=== PATIENT | male | born 1995 | race Caucasian/White ===

== ENCOUNTER 2016-12-18 18:41 | Emergency (ER) | payer OTHER ==
[2016-12-18] MEDS ORDERED: HYDROcodone/APAP 5-325MG 1 EACH TAB PO STA (19:15)
--- NOTE | 2016-12-18 19:26 | ED ---
General Adult HPI - General Chief complaint: Eye Problems Stated complaint: Eye Injury Source: patient, RN notes reviewed Mode of arrival: wheelchair Limitations: no limitations - History of Present Illness Initial comments: Chief complaint and history of present illness a 20-year-old male who was out shooting skin. One of his friends had ischemic in the skeet throwing device and accidentally threw it in his direction hitting him in the right eye. He has bruising on the bridge of the nose across the upper and lower eyelid. He complains of decreased vision. - Related Data Home Medications Medication Instructions Recorded Confirmed Ibuprofen [Motrin] 600 mg PO Q8H PRN 12/18/16 12/18/16 Allergies Allergy/AdvReac Type Severity Reaction Status Date / Time No Known Allergies Allergy Verified 12/18/16 19:30 Review of Systems ROS Statement: Those systems with pertinent positive or pertinent negative responses have been documented in the HPI. Review of systems headache on the right side. Decreased vision. He is able to count fingers at 5 feet in the dark but blurred. Extraocular movements are normal. Pain to the bones around the right eye. Nose no loss of consciousness. No other complaints. All systems are reviewed. Past medical problems asthma. Surgeries none. Family history cancers of unknown type. Patient denies ALLERGIES. Patient does smoke strongly encouraged to stop rarely drinks alcohol. Last tetanus shot was 6 months ago. ROS Other: All systems not noted in ROS Statement are negative. Past Medical History Past Medical History: No Reported History History of Any Multi-Drug Resistant Organisms: None Reported Past Surgical History: No Surgical Hx Reported Past Psychological History: No Psychological Hx Reported Smoking Status: Current some day smoker Past Alcohol Use History: Occasional Past Drug Use History: Marijuana General Exam - General Exam Comments Initial Comments: General: The patient is awake and alert, planes of blurred vision and pain to his right eye. Vital signs show temperature 97.5 pulse 67 respiratory rate 20 pulse ox 99 % room air blood pressure 133/72 Eye: Right eye has bruising and abrasions on the upper or lower lids and bridge of nose. The patient has a faint hyphema. The pupil is dilated and does not respond to light. Extraocular movements are normal. Does not complain of diplopia during eye testing. Ears, nose, mouth and throat: There are moist mucous membranes and no oral lesions. Patient has no other complaints the chest abdomen or neurological problems. Limitations: no limitations Course Vital Signs 12/18/16 18:43 Temperature 97.5 F L Pulse Rate 67 Respiratory 20 Rate Blood Pressure 133/72 O2 Sat by Pulse 99 Oximetry Medical Decision Making - Medical Decision Making Patient reports at this time that his vision is clearing. Able to count fingers in the dark at approximately [address] of the orbits is reported to be negative by the radiologist as final impression is no acute fracture evident. No radiopaque foreign body is seen. As read by Dr. Julien I discussed the case with on-call electronic assembler Dr. Griggs. He recommends the eye shield which has already been placed. Pred forte one drop 4 times a day in affect and I as well as atropine 1% one drop in the affected eye twice a day. And follow up in office in approximately 13 hours. Patient was also advised to sleep with some upright. No sneezing, minimal head movement, no trauma. Disposition Clinical Impression: Hyphema of right eye Disposition: HOME SELF-CARE Condition: Serious Instructions: Hyphema (ED) Additional Instructions: Wear protective eye guard all a time. Remove it only to put in atropine one drop twice a day and Pred forte drops 4 times a day. Follow-up Dr. Griggs in the morning at either his [place] or [place] office. Referrals: None,Stated [Primary Care Provider] - 1-2 days Severo Griggs MD [STAFF PHYSICIAN] - 1-2 days Time of Disposition: 20:10
--- NOTE | 2016-12-18 19:38 | CT ---
EXAMINATION TYPE: CT orbits wo con DATE OF EXAM: 12/18/2016 7:26 PM COMPARISON: NONE HISTORY: FB to right eye. Trauma to right eye, hyphema and pain CT DLP: 474.4 mGycm Automated exposure control for dose reduction was used. FINDINGS: Ostiomeatal units are patent. Orbits are intact, no evident fracture. Mild inflammatory change presen t in the ethmoid air cells. Lindsay bullosa are present bilaterally. Soft tissue swelling is noted. No foreign body is evident. IMPRESSION: NO ACUTE FRACTURE EVIDENT. NO RADIOPAQUE FOREIGN BODY IS SEEN.
[2016-12-18] MEDS ORDERED: prednisoLONE ACETATE 1% OPHTH DROPS 1 ML BTL RIGHT EYE SCH (20:30)
[2016-12-18 20:42] VITALS: BP 114/56; PULSE 51; RESP 16; TEMP 99.8
[2016-12-18] MEDS ORDERED: ATROPINE OPHTH SOLN 1% 5ML BTL RIGHT EYE SCH (21:00)
== END 2016-12-18 20:43 | disposition home or self-care (01) ==
LOC: EC 18:41
DX: S05.11XA Contusion of eyeball and orbital tissues, right eye, initial encounter (principal); F17.200 Nicotine dependence, unspecified, uncomplicated; W20.8XXA Other cause of strike by thrown, projected or falling object, initial encounter; Y93.89 Activity, other specified
CPT/HCPCS: 70480; 99283

== ENCOUNTER 2017-02-12 14:48 | Emergency (ER) | payer OTHER ==
[2017-02-12 15:10] VITALS: BP 114/56; PULSE 74; RESP 20; TEMP 97.5
[2017-02-12] MEDS ORDERED: HYDROcodone/APAP 5-325MG 1 EACH TAB PO STA (15:59)
--- NOTE | 2017-02-12 16:32 | ED ---
Lower Extremity Injury HPI - General Chief Complaint: Extremity Injury, Lower Stated Complaint: L ankle injury Time Seen by Provider: 02/12/17 15:55 Source: family, RN notes reviewed Mode of arrival: ambulatory Limitations: physical limitation - History of Present Illness Initial Comments: 21-year-old male presented to the ER sustaining an injury to his left ankle. He states that he [place] [employer] on [place] jumping on a trampoline when his foot rolled causing instant pain. He stated that it did swell instantly and he is unable to bear weight on the left ankle. He states that he has tried to take Tylenol Motrin with little relief. He denies falling and hitting his head or loss consciousness. He denies any constitutional symptoms including fever or chills headache, blurry vision, nausea or vomiting, abdominal pain or diarrhea, numbness or tingling in the extremity and any other injury or abrasions. He presented to the ER with crutches that he had at home however he states that these are too tall for him. - Related Data Home Medications Medication Instructions Recorded Confirmed Ibuprofen [Motrin] 600 mg PO Q8H PRN 12/18/16 12/18/16 Previous Rx's Medication Instructions Recorded Hydrocodone/Acetaminophen [[place] 1 each PO Q6HR PRN #10 tab 12/18/16 5-325] Ibuprofen 600 mg PO TID #30 tablet 02/12/17 Allergies Allergy/AdvReac Type Severity Reaction Status Date / Time No Known Allergies Allergy Verified 02/12/17 15:10 Review of Systems ROS Statement: Those systems with pertinent positive or pertinent negative responses have been documented in the HPI. ROS Other: All systems not noted in ROS Statement are negative. Past Medical History Past Medical History: No Reported History History of Any Multi-Drug Resistant Organisms: None Reported Past Surgical History: No Surgical Hx Reported Past Psychological History: No Psychological Hx Reported Smoking Status: Current some day smoker Past Alcohol Use History: Occasional Past Drug Use History: Marijuana General Exam Limitations: physical limitation General appearance: alert, in distress (Secondary to pain.) Head exam: Present: atraumatic, normocephalic Eye exam: Present: normal appearance, PERRL, EOMI Pupils: Present: normal accommodation Neck exam: Present: normal inspection Respiratory exam: Present: normal lung sounds bilaterally Cardiovascular Exam: Present: regular rate, normal rhythm Extremities exam: Present: normal capillary refill, other (Left lower extremity : Left ankle with lateral edema and ecchymosis extending to the forefoot. Tenderness with palpation. Negative anterior, posterior drawer, talar fib test , tib-fib compression. Vascular status is intact with capillary refill less than 3 seconds and sensation intact. He is unable to extend and flex the foot secondary to pain as well as eversion and inversion. He is unable to bear weight.) Neurological exam: Present: alert, oriented X3, CN II-XII intact Psychiatric exam: Present: normal affect, normal mood Skin exam: Present: warm, dry, intact Course Vital Signs 02/12/17 15:08 Temperature 97.5 F L Pulse Rate 74 Respiratory 20 Rate Blood Pressure 114/56 O2 Sat by Pulse 98 Oximetry Medical Decision Making - Medical Decision Making 21-year-old male presented to the ER after sustaining an inversion ankle injury from jumping on a trampoline. Upon exam he does have moderate edema and ecchymosis. Special testing was negative and he did not have any asymmetric the fifth metatarsal tenderness however due to edema and lack of being able to bear weight x-rays of the foot and ankle were ordered to evaluate for fracture. The x-rays came back negative and his diagnosis is consistent with an ankle sprain. He was Kieran wrapped and given a prescription for crutches to have them properly fitted. He is instructed to take Motrin as needed for discomfort and rest ice compress and elevate the foot. He is to follow up with orthopedics this week. It was described to him that an x-ray may not initially show a fracture and he is to follow-up with the pain continues to worsen in 10-14 days for possible repeat x-ray. 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 All questions were answered and he was agreeable to treatment plan. He is return to ER if any new or worsening symptoms or concerns. - Radiology Data Radiology results: report reviewed (Normal ankle x-ray. Normal foot x-ray.), image reviewed (No evidence of foot or ankle fracture, dislocation, subluxation , soft tissue injury.) Disposition Clinical Impression: Inversion sprain of left ankle Disposition: HOME SELF-CARE Condition: Good Instructions: Ankle Sprain (ED) Additional Instructions: Follow-up with orthopedics this week. To return to the ER if any new or worsening symptoms or concerns. Prescriptions: Ibuprofen 600 mg PO TID #30 tablet Referrals: Arash Connolly DO [Doctor of Osteopathic Medicine] - 1-2 days Time of Disposition: 16:55
--- NOTE | 2017-02-12 16:45 | XR ---
EXAMINATION TYPE: XR ankle complete LT DATE OF EXAM: 02/12/2017 COMPARISON: NONE HISTORY: Pain TECHNIQUE: 3 view left ankle FINDINGS: No acute fractures evident. Ankle mortise is intact. Soft tissues are normal. Follow-up exam can be performed 7-10 days from acute trauma for continued pain IMPRESSION: 1. Normal three-view left ankle
--- NOTE | 2017-02-12 16:47 | XR ---
EXAMINATION TYPE: XR foot complete LT DATE OF EXAM: 02/12/2017 COMPARISON: NONE HISTORY: Pain TECHNIQUE: 3 view left foot FINDINGS: No acute fractures evident. Soft tissues are normal. Follow-up study can be performed 7-10 days from acute trauma for continued pain IMPRESSION: 1. Normal three-view left foot
== END 2017-02-12 17:22 | disposition home or self-care (01) ==
LOC: EC 14:48
DX: S93.402A Sprain of unspecified ligament of left ankle, initial encounter (principal); F17.200 Nicotine dependence, unspecified, uncomplicated; X50.9XXA Other and unspecified overexertion or strenuous movements or postures, initial encounter; Y92.89 Other specified places as the place of occurrence of the external cause; Y93.44 Activity, trampolining
CPT/HCPCS: 99283

== ENCOUNTER 2018-06-19 11:05 | Emergency (ER) | payer OTHER ==
[2018-06-19 11:15] VITALS: BP 106/52; PULSE 63; RESP 18; TEMP 98.2
--- NOTE | 2018-06-19 11:35 | ED ---
General Adult HPI - General Chief complaint: Chest Pain Stated complaint: chest pain Time Seen by Provider: 06/19/18 11:26 Source: patient, RN notes reviewed Mode of arrival: wheelchair Limitations: no limitations - History of Present Illness Initial comments: Patient 22-year-old male with a past medical history, presented to the emergency room today with a chief complaint of chest pain onset of chest wall that started yesterday. Patient does admit that he had some discomfort when he woke up yesterday and as the day went on to get worse. Patient does admit that he has had cough congestion over the last month. Has had a cough that has had sputum production. Patient does admit that the pain is worse with certain movements of the left shoulder also if he takes a deep breath or coughs. Patient denies any specific injury. He denies any other complaints or symptoms. Patient denies any recent fever, chills, shortness of breath, back pain, abdominal pain, nausea or vomiting, numbness or tingling, dysuria or hematuria, constipation or diarrhea, headaches or visual changes, or any other complaints. - Related Data Home Medications Medication Instructions Recorded Confirmed Ibuprofen [Motrin] 600 mg PO Q8H PRN 12/18/16 12/18/16 Previous Rx's Medication Instructions Recorded Hydrocodone/Acetaminophen [[place] 1 each PO Q6HR PRN #10 tab 12/18/16 5-325] Ibuprofen 600 mg PO TID #30 tablet 02/12/17 Sulfamethoxazole/Trimethoprim 1 each PO BID #20 tablet 06/29/17 [Bactrim DS 800-160 mg] Ibuprofen [Motrin] 600 mg PO Q6HR PRN #40 day 06/19/18 Allergies Allergy/AdvReac Type Severity Reaction Status Date / Time No Known Allergies Allergy Verified 06/29/17 16:55 Review of Systems ROS Statement: Those systems with pertinent positive or pertinent negative responses have been documented in the HPI. ROS Other: All systems not noted in ROS Statement are negative. Past Medical History Past Medical History: No Reported History History of Any Multi-Drug Resistant Organisms: MRSA Date of last positivie culture/infection: 06/29/17 MDRO Source:: AXILLA Past Surgical History: No Surgical Hx Reported Past Psychological History: No Psychological Hx Reported Smoking Status: Current every day smoker Past Alcohol Use History: Rare Past Drug Use History: Marijuana General Exam - General Exam Comments Initial Comments: General: The patient is awake and alert, in no distress, and does not appear acutely ill. Eye: There is normal conjunctiva bilaterally. No signs of icterus. Ears, nose, mouth and throat: There are moist mucous membranes and no oral lesions. Neck: The neck is supple, there is no tenderness or JVD. Cardiovascular: There is a regular rate and rhythm. No murmur, rub or gallop is appreciated. Mild tenderness of the left side of the chest wall palpation. Respiratory: Lungs are clear to auscultation, respirations are non-labored, breath sounds are equal. No wheezes, stridor, rales, or rhonchi. Gastrointestinal: Soft, non-distended, non-tender abdomen without masses or organomegaly noted. There is no rebound or guarding present. Musculoskeletal: Normal ROM, no tenderness. Sensation intact. Strength 5/5. Pulses equal bilaterally 2+. Neurological: A&O x 3. CN II-XII intact, There are no obvious motor or sensory deficits. Coordination appears grossly intact. Speech is normal. Skin: Skin is warm and dry and no rashes or lesions are noted. Psychiatric: Cooperative, appropriate mood & affect, normal judgment. Limitations: no limitations Course Vital Signs 06/19/18 11:12 Temperature 98.2 F Pulse Rate 63 Respiratory 18 Rate Blood Pressure 106/52 O2 Sat by Pulse 97 Oximetry EKG Findings - EKG Comments: EKG Findings:: EKG performed at 1140: Shows sinus bradycardia at 49 bpm. ID interval 146. QRS 102. QT/QTc 426/384. change. No acute ST changes. Medical Decision Making - Medical Decision Making Case discussed in detail with attending physician Dr. Friend. Patient's chest x -ray reviewed is negative for any acute abnormality. Results were discussed with the patient. Patient's pain is reproducible to palpation he has had a cough over the last month. This felt at this is cause for is musculoskeletal pain. He is advised anti-inflammatories for pain and follow-up family DrYasmine next 2 days return here to the emergency room symptoms increase worsen. He states understanding and is in agreement with plan. Disposition Clinical Impression: Chest wall pain Disposition: HOME SELF-CARE Condition: Good Instructions: Costochondritis (ED) Additional Instructions: Please use medication as discussed. Please follow-up with family doctor in the next 2 days of symptoms have not improved. Please return to emergency room if the symptoms increase or worsen or for any other concerns. Prescriptions: Ibuprofen [Motrin] 600 mg PO Q6HR PRN #40 day PRN Reason: Pain Is patient prescribed a controlled substance at d/c from ED?: No Referrals: None,Stated [Primary Care Provider] - 1-2 days Time of Disposition: 12:30
--- NOTE | 2018-06-19 11:59 | XR ---
EXAMINATION TYPE: XR chest 2V DATE OF EXAM: 06/19/2018 COMPARISON: 06/29/2017 HISTORY: Chest pain and cough TECHNIQUE: Frontal and lateral views of the chest are obtained. FINDINGS: There is no focal air space opacity, pleural effusion, or pneumothorax seen. The cardiac silhouette size is within normal limits. The osseous structures are intact. IMPRESSION: No acute cardiopulmonary process.
== END 2018-06-19 12:35 | disposition home or self-care (01) ==
LOC: EC 11:05
DX: R07.89 Other chest pain (principal); R05 Cough; M25.512 Pain in left shoulder; F17.200 Nicotine dependence, unspecified, uncomplicated; Z86.14 Personal history of Methicillin resistant Staphylococcus aureus infection
CPT/HCPCS: 71046; 93005; 99285

== ENCOUNTER 2018-07-15 05:45 | Emergency (ER) | payer OTHER ==
[2018-07-15 05:59] VITALS: BP 113/72; PULSE 69; RESP 18
--- NOTE | 2018-07-15 06:08 | ED ---
Trauma HPI - General Chief Complaint: Extremity Injury, Upper Stated Complaint: L Hand Pain Time Seen by Provider: 07/15/18 06:07 Source: patient Mode of arrival: ambulatory Limitations: no limitations - History of Present Illness Initial Comments: is a left-handed 22-year-old male who presents the emergency department today for evaluation of left hand pain. Patient reports yesterday evening he became upset and punched his closet door. He slept through the night but woke this morning with throbbing pain and swelling in his left hand secondary to the ER for further evaluation. He has no history of bone fractures or injury or surgery to that hand in the past. - Related Data Home Medications Medication Instructions Recorded Confirmed No Known Home Medications 07/15/18 07/15/18 Allergies Allergy/AdvReac Type Severity Reaction Status Date / Time No Known Allergies Allergy Verified 07/15/18 05:59 Review of Systems ROS Statement: Those systems with pertinent positive or pertinent negative responses have been documented in the HPI. ROS Other: All systems not noted in ROS Statement are negative. Past Medical History Past Medical History: No Reported History History of Any Multi-Drug Resistant Organisms: MRSA Date of last positivie culture/infection: 06/29/17 MDRO Source:: AXILLA Past Surgical History: No Surgical Hx Reported Past Psychological History: No Psychological Hx Reported Smoking Status: Current every day smoker Past Alcohol Use History: Occasional, Rare Past Drug Use History: Marijuana General Exam - General Exam Comments Initial Comments: Physical Exam GENERAL: Patient is well-developed and well-nourished. Patient is nontoxic and well- hydrated and is in no distress. HENT: Normocephalic, Atraumatic. EYES: PERRL, EOMI PULMONARY: Unlabored respirations. CARDIOVASCULAR: RRR ABDOMEN: Nondistended SKIN: Skin is clear with no lesions or rashes and otherwise unremarkable. : Deferred NEUROLOGIC: Patient is alert and oriented x3. Moving all extremities spontaneously MUSCULOSKELETAL: Swelling of medial surface of left hand over the first metacarpal of the fifth finger consistent with injury from punching a solid object Fingers neurovascularly intact, range of motion of the pinky finger limited by pain PSYCHIATRIC: Normal psychiatric evaluation. Limitations: no limitations Limitations: no limitations Course Vital Signs 07/15/18 05:56 Pulse Rate 69 Respiratory 18 Rate Blood Pressure 113/72 O2 Sat by Pulse 95 Oximetry Medical Decision Making - Medical Decision Making The patient was seen and evaluated history is obtained from the patient history and physical exam are concerning for a boxer's fracture, x-ray was ordered x- ray revealed no fracture. Results were discussed with the patient. Supportive care, rest ice elevation and compression were discussed with the patient advised patient have repeat imaging in 1 week if he has persistent pain. Return parameters discussed patient discharged home in stable condition. Disposition Clinical Impression: Left hand pain Disposition: HOME SELF-CARE Condition: Good Instructions: Hand Sprain (ED) Is patient prescribed a controlled substance at d/c from ED?: No Referrals: None,Stated [Primary Care Provider] - 1-2 days
--- NOTE | 2018-07-15 06:26 | XR ---
EXAMINATION TYPE: XR hand complete LT DATE OF EXAM: 07/15/2018 COMPARISON: NONE HISTORY: Pain TECHNIQUE: 3 views FINDINGS: Metacarpals are intact. I see no fracture nor dislocation. There are no erosions. Joint spa annette are normal. IMPRESSION: Negative left hand exam.
== END 2018-07-15 06:37 | disposition home or self-care (01) ==
LOC: EC 05:45
DX: M79.642 Pain in left hand (principal); M79.89 Other specified soft tissue disorders; F17.200 Nicotine dependence, unspecified, uncomplicated; Z86.14 Personal history of Methicillin resistant Staphylococcus aureus infection; W22.8XXA Striking against or struck by other objects, initial encounter
CPT/HCPCS: 99283

== ENCOUNTER 2018-12-23 20:59 | Emergency (ER) | payer OTHER ==
[2018-12-23 21:05] VITALS: BP 134/83; PULSE 92; RESP 18; TEMP 97.6
--- NOTE | 2018-12-23 22:46 | ED ---
Psych HPI - General Chief Complaint: Psychiatric Symptoms Stated Complaint: eps Source: patient, police Mode of arrival: ambulatory - History of Present Illness Initial Comments: 22-year-old male presenting for suicidal ideation. Patient states that earlier today he was drinking he states he is not supposed to because he is on probation. Patient states this prompted a fight with his girlfriend. Patient states he wanted to immediately resolve it however she did not want to. This prompted patient to begin to feel suicidal he wanted to end it all. He felt this would be easier. He walked into traffic. He flagged down a police service technician who brought him to the emergency department for evaluation. Blood alcohol elevated upon arrival. Patient denies any current suicidal ideation he denies homicidal ideation. Patient states he feels down for what he did. Patient states he has occasional depression he denies being chronically depressed or having any previous suicidal ideation or attempt. Remaining review of systems negative, Patient denies any recent fever, chills, shortness of breath, chest pain, back pain, abdominal pain, nausea or vomiting, numbness or tingling, dysuria or hematuria, constipation or diarrhea, headaches or visual changes, or any other complaints. - Related Data Home Medications Medication Instructions Recorded Confirmed No Known Home Medications 07/15/18 12/23/18 Allergies Allergy/AdvReac Type Severity Reaction Status Date / Time No Known Allergies Allergy Verified 12/23/18 21:24 Review of Systems ROS Statement: Those systems with pertinent positive or pertinent negative responses have been documented in the HPI. ROS Other: All systems not noted in ROS Statement are negative. Past Medical History Past Medical History: No Reported History History of Any Multi-Drug Resistant Organisms: MRSA Date of last positivie culture/infection: 06/29/17 MDRO Source:: AXILLA Past Surgical History: No Surgical Hx Reported Past Psychological History: No Psychological Hx Reported Smoking Status: Current every day smoker Past Alcohol Use History: Occasional, Rare Past Drug Use History: Marijuana General Exam - General Exam Comments Initial Comments: General: The patient is awake and alert, in no distress, and does not appear acutely ill. Eye: Pupils are equal, round and reactive to light, extra-ocular movements are intact. No nystagmus. There is normal conjunctiva bilaterally. No signs of icterus. Ears, nose, mouth and throat: There are moist mucous membranes and no oral lesions. Neck: The neck is supple, there is no tenderness or JVD. Cardiovascular: There is a regular rate and rhythm. No murmur, rub or gallop is appreciated. Respiratory: Lungs are clear to auscultation, respirations are non-labored, breath sounds are equal. No wheezes, stridor, rales, or rhonchi. Gastrointestinal: Soft, non-distended, non-tender abdomen without masses or organomegaly noted. There is no rebound or guarding present. No CVA tenderness. Bowel sounds are unremarkable. Musculoskeletal: Normal ROM, no tenderness. Strength 5/5. Sensation intact. Pulses equal bilaterally 2+. Neurological: A&O x 3. CN II-XII intact, There are no obvious motor or sensory deficits. Coordination appears grossly intact. Speech is normal. Skin: Skin is warm and dry and no rashes or lesions are noted. Psychiatric: Cooperative, appropriate mood & affect, normal judgment. Limitations: no limitations Course Vital Signs 12/23/18 21:00 Temperature 97.6 F Pulse Rate 92 Respiratory 18 Rate Blood Pressure 134/83 O2 Sat by Pulse 97 Oximetry Medical Decision Making - Medical Decision Making 22-year-old male presenting for suicidal ideation. Patient denies any current suicidal ideation he said he stated this earlier. Patient states she does not really want to kill himself he feels he was being dramatic. He states he was she could take it all back. Patient is intoxicated at this time. We'll reassess the patient's sober. Physical examination unremarkable. Patient denies any areas of injury. Patient will be evaluated by EPS when sober at 1:30 AM. Patient is agreeable to plan. EPS evaluated patient recommended d/c. Discussed case with attending provider Dr. De Guzman who is agreeable with plan. - Lab Data Lab Results 12/24/18 Range/Units 00:11 Urine Color Light Yellow Urine Appearance Clear (Clear) Urine pH 5.0 (5.0-8.0) Ur Specific [place] 1.005 (1.001-1.035) Urine Protein Negative (Negative) Urine Glucose (UA) Negative (Negative) Urine Ketones Negative (Negative) Urine Blood Negative (Negative) Urine Nitrite Negative (Negative) Urine Bilirubin Negative (Negative) Urine Urobilinogen <2.0 (<2.0) mg/dL Ur Leukocyte Esterase Negative (Negative) Urine Opiates Screen Not Detected (NotDetected) Ur Oxycodone Screen Not Detected (NotDetected) Urine Methadone Screen Not Detected (NotDetected) Ur Propoxyphene Screen Not Detected (NotDetected) Ur Barbiturates Screen Not Detected (NotDetected) U Tricyclic Antidepress Not Detected (NotDetected) Ur Phencyclidine Scrn Not Detected (NotDetected) Ur Amphetamines Screen Not Detected (NotDetected) U Methamphetamines Scrn Not Detected (NotDetected) U Benzodiazepines Scrn Not Detected (NotDetected) Urine Cocaine Screen Not Detected (NotDetected) U Marijuana (THC) Screen Detected H (NotDetected) Disposition Clinical Impression: Depression, Alcohol intoxication Disposition: HOME SELF-CARE Condition: Good Instructions (If sedation given, give patient instructions): Alcohol Intoxication (ED) Additional Instructions: Please use medication as discussed. Please follow-up with family doctor in the next 2 days.. Please return to emergency room if the symptoms increase or worsen or for any other concerns. Is patient prescribed a controlled substance at d/c from ED?: No Referrals: None,Stated [Primary Care Provider] - 1-2 days Time of Disposition: 02:10
[2018-12-24 00:30] LABS: Appearance,Urine Clear (Clear); Bilirubin,Urine Negative (Negative); Blood,Urine Negative (Negative); Color,Urine Light Yellow; Glucose,Urine (UA) Negative (Negative); Ketones,Urine Negative (Negative); Leukocyte Esterase,Urine Negative (Negative); Nitrite,Urine Negative (Negative); Protein,Urine Negative (Negative); Specific Gravity,Urine 1.005 (1.001-1.035); Urobilinogen,Urine <2.0 mg/dL (<2.0)
[2018-12-24 00:42] LABS: Amphetamine Screen,Urine Not Detected (NotDetected); Barbiturate Screen,Urine Not Detected (NotDetected); Benzodiazepines Screen,Urine Not Detected (NotDetected); Cocaine Screen,Urine Not Detected (NotDetected); Methadone Screen, Urine Not Detected (NotDetected); Opiate Screen,Urine Not Detected (NotDetected); Oxycodone Screen, Urine Not Detected (NotDetected); Phencyclidine Screen,Urine Not Detected (NotDetected); Tricyclic Antidepressant,Urine Not Detected (NotDetected); Urn Cannabinoid Scrn Detected (NotDetected)
== END 2018-12-24 02:25 | disposition home or self-care (01) ==
LOC: EC 20:59
DX: F32.9 Major depressive disorder, single episode, unspecified (principal); F10.129 Alcohol abuse with intoxication, unspecified; R45.851 Suicidal ideations; F17.200 Nicotine dependence, unspecified, uncomplicated; Z86.14 Personal history of Methicillin resistant Staphylococcus aureus infection
CPT/HCPCS: 80306; 81003; 99285

== ENCOUNTER 2019-04-01 09:16 | Emergency (ER) | payer OTHER ==
[2019-04-01 09:22] VITALS: BP 117/66; PULSE 74; RESP 18; TEMP 98.1
--- NOTE | 2019-04-01 09:47 | ED ---
Back Pain HPI - General Chief Complaint: Back Pain/Injury Stated Complaint: back pain Time Seen by Provider: 04/01/19 09:23 Source: patient, RN notes reviewed Limitations: no limitations - History of Present Illness Initial Comments: 23-year-old male presents emergency Department chief complaint of upper back, shoulder blade pain. 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 He states that he 31 Y today states the pain is not better it's worse with certain movements of his left shoulder especially when his scapula starts moving. He states it's worse with twisting bending he does feel short of breath and has pleuritic pain to area. Patient has no prior cardiac disease no history of lung disease he denies any nausea vomiting. - Related Data Previous Rx's Medication Instructions Recorded Cyclobenzaprine [Flexeril] 10 mg PO TID PRN #15 tab 04/01/19 Ibuprofen [Motrin] 600 mg PO Q8HR PRN #30 tab 04/01/19 Allergies Allergy/AdvReac Type Severity Reaction Status Date / Time No Known Allergies Allergy Verified 04/01/19 09:35 Review of Systems ROS Statement: Those systems with pertinent positive or pertinent negative responses have been documented in the HPI. ROS Other: All systems not noted in ROS Statement are negative. Past Medical History Past Medical History: No Reported History History of Any Multi-Drug Resistant Organisms: MRSA Date of last positivie culture/infection: 06/29/17 MDRO Source:: AXILLA Past Surgical History: No Surgical Hx Reported Past Psychological History: No Psychological Hx Reported Smoking Status: Current every day smoker Past Alcohol Use History: Occasional, Rare Past Drug Use History: Marijuana General Exam Limitations: no limitations General appearance: alert, in no apparent distress Head exam: Present: atraumatic, normocephalic, normal inspection Eye exam: Present: normal appearance, PERRL, EOMI. Absent: scleral icterus, conjunctival injection, periorbital swelling ENT exam: Present: normal exam, normal oropharynx, mucous membranes moist, TM's normal bilaterally Neck exam: Present: normal inspection, full ROM. Absent: tenderness, meningismus, lymphadenopathy Respiratory exam: Present: normal lung sounds bilaterally. Absent: respiratory distress, wheezes, rales, rhonchi, stridor Cardiovascular Exam: Present: regular rate, normal rhythm, normal heart sounds. Absent: systolic murmur, diastolic murmur, rubs, gallop, clicks Extremities exam: Present: normal inspection, full ROM, normal capillary refill. Absent: tenderness, pedal edema, joint swelling, calf tenderness Back exam: Present: full ROM, tenderness (Tenderness along thoracic and left scapular border), paraspinal tenderness. Absent: CVA tenderness (R), CVA tenderness (L) Course Vital Signs 04/01/19 09:19 Temperature 98.1 F Pulse Rate 74 Respiratory 18 Rate Blood Pressure 117/66 O2 Sat by Pulse 99 Oximetry Disposition Clinical Impression: Strain of thoracic back region, Subscapular pain, Muscle spasm Disposition: HOME SELF-CARE Condition: Stable Instructions (If sedation given, give patient instructions): Muscle Strain (ED), Thoracic Back Strain (ED) Additional Instructions: Please return to the Emergency Department if symptoms worsen or any other concerns. Prescriptions: Cyclobenzaprine [Flexeril] 10 mg PO TID PRN #15 tab PRN Reason: Muscle Spasm Ibuprofen [Motrin] 600 mg PO Q8HR PRN #30 tab PRN Reason: Pain Is patient prescribed a controlled substance at d/c from ED?: No Referrals: None,Stated [Primary Care Provider] - 1-2 days Time of Disposition: 10:39
--- NOTE | 2019-04-01 09:58 | XR ---
EXAMINATION TYPE: XR chest 2V DATE OF EXAM: 04/01/2019 COMPARISON: 06/19/2018 HISTORY: Back pain/chest pain without injury TECHNIQUE: Frontal and lateral views of the chest are obtained. FINDINGS: There is no focal air space opacity, pleural effusion, or pneumothorax seen. The cardiac silhouette size is within normal limits. The osseous structures are intact. IMPRESSION: No acute cardiopulmonary process.
== END 2019-04-01 10:49 | disposition home or self-care (01) ==
LOC: EC 09:16
DX: S29.012A Strain of muscle and tendon of back wall of thorax, initial encounter (principal); M62.838 Other muscle spasm; F17.200 Nicotine dependence, unspecified, uncomplicated; Z86.14 Personal history of Methicillin resistant Staphylococcus aureus infection; X58.XXXA Exposure to other specified factors, initial encounter
CPT/HCPCS: 71046; 99283

== ENCOUNTER 2022-08-23 15:08 | Emergency (ER) | payer OTHER ==
[2022-08-23 15:38] VITALS: BP 120/76; PULSE 73; RESP 16; TEMP 98.5
--- NOTE | 2022-08-23 15:45 | ED ---
Skin/Abscess/FB HPI - General Chief complaint: Skin/Abscess/Foreign Body Stated complaint: abscess by lt eye Time Seen by Provider: 08/23/22 15:42 Source: patient, RN notes reviewed Mode of arrival: ambulatory Limitations: no limitations - History of Present Illness Initial comments: 26-year-old male presents emergency Department with chief complaint of cyst by his left thigh. Patient states has been there for a long period time but has grown. Patient states that starting to affect his vision. Patient denies any trauma. Patient states his been no drainage no other complaints. - Related Data Previous Rx's Medication Instructions Recorded Cyclobenzaprine [Flexeril] 10 mg PO TID PRN #15 tab 04/01/19 Ibuprofen [Motrin] 600 mg PO Q8HR PRN #30 tab 04/01/19 Allergies Allergy/AdvReac Type Severity Reaction Status Date / Time No Known Allergies Allergy Verified 08/23/22 15:38 Review of Systems ROS Statement: Those systems with pertinent positive or pertinent negative responses have been documented in the HPI. ROS Other: All systems not noted in ROS Statement are negative. Past Medical History Past Medical History: No Reported History History of Any Multi-Drug Resistant Organisms: MRSA Date of last positivie culture/infection: 06/29/17 MDRO Source:: AXILLA Past Surgical History: No Surgical Hx Reported Past Psychological History: No Psychological Hx Reported Past Alcohol Use History: Occasional, Rare Past Drug Use History: Marijuana General Exam Limitations: no limitations General appearance: alert, in no apparent distress Head exam: Present: atraumatic, normocephalic, normal inspection Eye exam: Present: normal appearance, PERRL, EOMI. Absent: scleral icterus, conjunctival injection, periorbital swelling Pupils: Present: other (Left periorbital there is approximately 2 cm x 1 cm mobile cysts) ENT exam: Present: normal exam, mucous membranes moist Neck exam: Present: normal inspection, full ROM. Absent: tenderness, meningismus, lymphadenopathy Respiratory exam: Present: normal lung sounds bilaterally. Absent: respiratory distress, wheezes, rales, rhonchi, stridor Cardiovascular Exam: Present: regular rate, normal rhythm, normal heart sounds. Absent: systolic murmur, diastolic murmur, rubs, gallop, clicks Course Vital Signs 08/23/22 15:35 Temperature 98.5 F Pulse Rate 73 Respiratory 16 Rate Blood Pressure 120/76 O2 Sat by Pulse 97 Oximetry Medical Decision Making - Medical Decision Making 26-year-old presented persist by his left eye. This appears to be a lipoma. Patient be referred to ENT for removal. Disposition Clinical Impression: Lipoma of face Disposition: HOME SELF-CARE Condition: Stable Instructions (If sedation given, give patient instructions): Lipoma (ED) Additional Instructions: Please return to the Emergency Department if symptoms worsen or any other concerns. Is patient prescribed a controlled substance at d/c from ED?: No Referrals: Chip Vinson MD [Primary Care Provider] - 1-2 days Diego Hays MD [STAFF PHYSICIAN] - 1-2 days Time of Disposition: 15:44
== END 2022-08-23 16:00 | disposition home or self-care (01) ==
LOC: SUPCPDRO 15:08 → EC 15:08
DX: D17.0 Benign lipomatous neoplasm of skin and subcutaneous tissue of head, face and neck (principal); F12.90 Cannabis use, unspecified, uncomplicated
CPT/HCPCS: 99282